=== PATIENT | female | born 1970 | race Caucasian/White ===

== ENCOUNTER 2022-03-19 17:11 | Emergency (ER) | payer BC ==
[~2022-03-19] VITALS: Ht 165.1 cm; Wt 68.0 kg
[2022-03-19] MEDS ORDERED: KETO10TA2 PO (22:48)
== END 2022-03-19 22:57 | disposition home or self-care (01) ==
LOC: ER 17:11
DX: R10.2 Pelvic and perineal pain (principal); K59.00 Constipation, unspecified